=== PATIENT | male | born 1955 | race Caucasian/White ===

== ENCOUNTER 2019-08-24 08:02 | Day surgery (SDC) | payer OTHER ==
[2019-08-21 14:25] VITALS: BMI 24.4
[2019-08-24 08:17] VITALS: TEMP 98
[2019-08-24] MEDS ORDERED: PROPOFOL 20 ML ONE (09:46)
[2019-08-24 11:03] VITALS: BP 112/61; PULSE 66
--- NOTE | 2019-08-26 15:44 | PATH ---
Surgical Pathology Report Patient Name: ROLF RICH [facility]. Rec. #: [id number] /Age/Gender: 1955 (Age: 63) / M Account: [id number] Location: [facility] Taken: 08/24/2019 Received: 08/24/2019 Reported: 08/26/2019 Physicians: Sergio Barr M.D. Specimen(s) Received A: SECOND PORTION DUODENUM B: ANTRUM C: GASTRIC POLYP Clinical History GERD, screening, history of polyps Postoperative diagnosis: Gastric polyps, gastritis Final Diagnosis A. SECOND PORTION OF DUODENUM, BIOPSY: DUODENAL MUCOSA WITH NO PATHOLOGIC FINDINGS. B. GASTRIC ANTRUM, BIOPSY: MILD CHRONIC GASTRITIS. IMMUNOSTAIN IS NEGATIVE FOR H. PYLORI ORGANISMS. C. GASTRIC POLYPS, BIOPSY: GASTRIC FUNDIC GLAND POLYPS. IMMUNOSTAIN IS NEGATIVE FOR H. PYLORI ORGANISMS. Electronically Signed Lucia Kirk M.D. Gross Description A. Received in formalin, labeled "biopsy second portion of duodenum" are 2 sabillon, irregular portions of soft tissue measuring 0.3 and 0.4 cm. in greatest dimension. The specimens are submitted in toto in one cassette. B. Received in formalin, labeled "biopsy gastric antrum" are 2 sabillon, irregular portions of soft tissue averaging 0.4 cm. in greatest dimension. The specimens are submitted in toto in one cassette. C. Received in formalin, labeled "biopsy gastric polyps" are 3 sabillon, irregular portions of soft tissue ranging from 0.2-0.4 cm. in greatest dimension. The specimens are submitted in toto in one cassette. 08/25/2019 [facility]08/25/2019
== END 2019-08-24 11:00 | disposition home or self-care (01) ==
LOC: FASU-ENDO 08:02
PROVIDERS: ATTEND Internal Medicine Gastroenterology
PROC: 0DB98ZX Excision of Duodenum, Via Natural or Artificial Opening Endoscopic, Diagnostic (ICD-10-PCS; 2019-08-24)
PROC: 0DB68ZX Excision of Stomach, Via Natural or Artificial Opening Endoscopic, Diagnostic (ICD-10-PCS; 2019-08-24)
PROC: 0DJD8ZZ Inspection of Lower Intestinal Tract, Via Natural or Artificial Opening Endoscopic (ICD-10-PCS; principal; 2019-08-24 09:47)
DX: Z86.010 Personal history of colon polyps (principal); K29.50 Unspecified chronic gastritis without bleeding; K31.7 Polyp of stomach and duodenum; R12 Heartburn
CPT/HCPCS: 88305-TC; 88342-TC